=== PATIENT | male | born 1935 | race African-American/Black ===

== ENCOUNTER 2016-12-31 04:28 | Emergency (ER) | payer OTHER ==
[~2016-12-31] VITALS: Ht 182.9 cm; Wt 54.0 kg
[2016-12-31 05:34] LABS: HEMATOCRIT. 25.3 % (42.0-52.0); HEMOGLOBIN. 8.1 g/dL (14.0-18.0); MEAN CORPUSCULAR HEMOGLOBIN 24.2 pg (28.0-32.0); MEAN CORPUSCULAR VOLUME 75.9 fL (80.0-94.0); MEAN PLATELET VOLUME 8.6 fl (7.4-10.4); PLATELET 217 x1000/uL (130-400); RED BLOOD CELL COUNT 3.33 mill/uL (4.7-6.1); RED CELL DISTRIBUTION WIDTH 17.6 % (11.6-14.6)
[2016-12-31] MEDS ORDERED: DEXTROSE 10% WATER 500 ML IV ONE (05:45)
[2016-12-31 05:51] LABS: CARBON DIOXIDE 34 mEq/L (21-32); CHLORIDE 99 mEq/L (98-107)
[2016-12-31] MEDS ORDERED: POTASSIUM CHLORIDE 20MEQ TABLET SR PO ONE (06:00)
[2016-12-31 06:46] LABS: PLATELET ESTIMATE NORMAL
[2016-12-31 08:28] VITALS: BP 145/82
== END 2016-12-31 08:40 | disposition short-term general hospital (02) ==
LOC: ER 04:34
DX: E11.649 Type 2 diabetes mellitus with hypoglycemia without coma (principal); I10 Essential (primary) hypertension; Z79.4 Long term (current) use of insulin; Z85.07 Personal history of malignant neoplasm of pancreas
CPT/HCPCS: 36415; 80053; 82962; 85025; 93005; 96360; 96361; 99285

== ENCOUNTER 2017-01-02 04:07 | Inpatient (IN) | payer OTHER ==
[2017-01-02] VITALS (8 sets, daily range): BP systolic 108–156; BP diastolic 65–90
[~2017-01-02] VITALS: Ht 172.7 cm; Wt 55.8 kg
[2017-01-02] MEDS ORDERED: DEXTROSE 50% WATER 50ML SYRINGE IV ONE ×4 (04:15→04:30)
[2017-01-02] MEDS ORDERED: DEXTROSE 50% WATER 50ML SYRINGE IV STA (04:17)
[2017-01-02] MEDS ORDERED: DEXTROSE 10% WATER 500 ML IV ONE (04:30)
[2017-01-02] MEDS ORDERED: SODIUM CHLORIDE 0.9% 1000ML BAG (SEPSIS BOLUS) IV ONE (04:30)
[2017-01-02] MEDS ORDERED: PIPERACILLIN/TAZ 3.375G PREMIX 50 ML IV ONE (04:30)
[2017-01-02] MEDS ORDERED: VANCOMYCIN 1 G PREMIX 200 ML IV ONE (04:30)
[2017-01-02 05:05] LABS: INR 1.1; PROTHROMBIN TIME 11.1 sec
[2017-01-02 05:07] LABS: HEMATOCRIT. 22.5 % (42.0-52.0); HEMOGLOBIN. 7.3 g/dL (14.0-18.0); MEAN CORPUSCULAR HEMOGLOBIN 24.3 pg (28.0-32.0); MEAN CORPUSCULAR VOLUME 74.4 fL (80.0-94.0); MEAN PLATELET VOLUME 8.5 fl (7.4-10.4); PLATELET 222 x1000/uL (130-400); RED BLOOD CELL COUNT 3.02 mill/uL (4.7-6.1)
[2017-01-02 05:20] LABS: CARBON DIOXIDE 31 mEq/L (21-32); CHLORIDE 98 mEq/L (98-107)
[2017-01-02 05:30] LABS: BG BASE EXCESS 11.9 mmol/L (-2.0-2.0); BG CARBOXYHEMOGLOBIN 0.7 % (0.5-1.5); BG DEOXYHEMOGLOBIN 5.4 % (0.0-5.0); BG FRACTION INSPIRED OXYGEN 21; BG HCO3 ACT 36.3 mmol/L (22.0-26.0); BG METHEMOGLOBIN 0.3 % (0.0-1.5); BG OXYGEN SATURATION 94.5 % (92.0-98.5); BG OXYHEMOGLOBIN 93.6 % (94.0-97.0); BG PCO2 47.7 mmHg (35.0-45.0); BG PH 7.499 (7.350-7.450); BG PO2 72.6 mmHg (75.0-100.0); BG SAMPLE SITE RIGHT BRACHIAL; BG TOTAL HEMOGLOBIN 8.2 g/dL (12.0-18.0); BG VENT MODE ROOM AIR
[2017-01-02] MEDS ORDERED: POTASSIUM CHLORIDE 20MEQ TABLET SR PO ONE (05:45)
[2017-01-02] MEDS ORDERED: ASPIRIN 325MG EC TABLET PO ONE (06:00)
[2017-01-02 06:15] LABS: CLARITY URINE CLEAR (CLEAR); COLOR URINE YELLOW (YELLOW); GLUCOSE URINE 2+ (NEGATIVE); KETONES URINE NEGATIVE (NEGATIVE); LEUKOCYTE ESTERASE URINE NEGATIVE (NEGATIVE); NITRITE URINE NEGATIVE (NEGATIVE); OCCULT BLOOD URINE NEGATIVE (NEGATIVE); PH URINE 6.5 (4.5-8.0); PROTEIN URINE NEGATIVE (NEGATIVE); SPECIFIC GRAVITY URINE 1.015 (1.005-1.030)
[2017-01-02 06:30] LABS: PLATELET ESTIMATE NORMAL
[2017-01-02] MEDS ORDERED: MORP15TA67 PO (09:16)
[2017-01-02] MEDS ORDERED: METF10002 PO (09:22)
[2017-01-02] MEDS ORDERED: OMEP20CA10 PO (09:22)
[2017-01-02] MEDS ORDERED: AMLO2.5T45 PO (09:22)
[2017-01-02] MEDS ORDERED: LOSA100T14 PO (09:22)
[2017-01-02] MEDS ORDERED: HYDR25TA PO (09:22)
[2017-01-02] MEDS ORDERED: PANCREALIPASE (09:22)
[2017-01-02] MEDS ORDERED: GLIP10TA10 PO (09:22)
[2017-01-02] MEDS ORDERED: SYSOS EACHEYE (09:24)
[2017-01-02] MEDS ORDERED: IPRATROPIUM/ALBUTEROL 0.5-3(2.5)MG/3ML NEB INH PRN (10:15)
[2017-01-02] MEDS ORDERED: ONDANSETRON HCL 4MG/2ML VIAL IV PRN (10:15)
[2017-01-02] MEDS ORDERED: HYDROCODONE/ACETAMINOPHEN 5/325MG TABLET PO PRN (10:15)
[2017-01-02] MEDS ORDERED: ACETAMINOPHEN 325MG TABLET PO PRN (10:15)
[2017-01-02] MEDS ORDERED: DEXTROSE 50% WATER 50ML SYRINGE IV PRN ×2 (10:15→13:30)
[2017-01-02] MEDS ORDERED: DOCUSATE SODIUM 100MG CAPSULE PO PRN (10:15)
[2017-01-02] MEDS: LOSARTAN POTASSIUM 100 MG TABLET PO SCH (11:49)
[2017-01-02] MEDS: OMEPRAZOLE 20MG CAPSULE EXTENDED RELEASE PO SCH ×2 (11:49→21:05)
[2017-01-02] MEDS: INSULIN LISPRO 100 UNITS/ML SUBCUT SCH ×3 (12:08→21:06)
[2017-01-02] MEDS ORDERED: BLOOD SUGAR DIAGNOSTIC STRIP TEST SCH ×2 (12:30→17:30)
[2017-01-02 12:40] LABS: HEMATOCRIT 22.7 % (42.0-52.0); HEMOGLOBIN 7.4 g/dL (14.0-18.0); MEAN CORPUSCULAR HEMOGLOBIN 24.1 pg (28.0-32.0); MEAN CORPUSCULAR VOLUME 74.2 fL (80.0-94.0); PLATELET 191 x1000/uL (130-400); RED BLOOD CELL COUNT 3.06 mill/uL (4.7-6.1); RED CELL DISTRIBUTION WIDTH 17.8 % (11.6-14.6)
[2017-01-02 13:06] LABS: CARBON DIOXIDE 27 mEq/L (21-32); CHLORIDE 96 mEq/L (98-107); TOTAL IRON BINDING CAPACITY 126 ug/dL (250-450); TROPONIN I 0.16 ng/mL (0.00-0.04)
[2017-01-02] MEDS: PROPYLENE GLYCOL/PEG 400 15 ML DROPS BOTHEYE SCH ×2 (15:05→21:07)
[2017-01-02] MEDS: BLOOD SUGAR DIAGNOSTIC STRIP TEST SCH ×2 (17:31→21:00)
[2017-01-02] MEDS: FERROUS SULFATE 300MG/5ML UDC PO SCH (17:45)
[2017-01-02] MEDS ORDERED: INSULIN LISPRO 100 UNITS/ML SUBCUT SCH (18:00)
[2017-01-03] VITALS (12 sets, daily range): BP systolic 112–149; BP diastolic 56–105
[2017-01-03] MEDS: PIPERACILLIN/TAZ 3.375G PREMIX 50 ML IV SCH ×4 (00:48→17:31)
[2017-01-03] MEDS: OMEPRAZOLE 20MG CAPSULE EXTENDED RELEASE PO SCH ×2 (05:37→20:38)
[2017-01-03 07:56] LABS: CARBON DIOXIDE 26 mEq/L (21-32); CHLORIDE 98 mEq/L (98-107)
[2017-01-03] MEDS: INSULIN LISPRO 100 UNITS/ML SUBCUT SCH ×4 (08:00→20:41)
[2017-01-03] MEDS: BLOOD SUGAR DIAGNOSTIC STRIP TEST SCH ×4 (08:42→20:42)
[2017-01-03] MEDS: FERROUS SULFATE 300MG/5ML UDC PO SCH ×3 (08:43→17:31)
[2017-01-03] MEDS: LOSARTAN POTASSIUM 100 MG TABLET PO SCH (08:43)
[2017-01-03] MEDS: PROPYLENE GLYCOL/PEG 400 15 ML DROPS BOTHEYE SCH ×2 (08:43→20:38)
[2017-01-03] MEDS ORDERED: PANCREALIPASE PO SCH (09:00)
[2017-01-03 09:47] LABS: BASOPHILS % 0.8 % (0.0-2.0); EOSINOPHILS % 0.6 % (0.0-5.0); HEMATOCRIT. 27.7 % (42.0-52.0); LYMPHOCYTES % 14.7 % (20.0-50.0); MEAN CORPUSCULAR HEMOGLOBIN 23.9 pg (28.0-32.0); MEAN CORPUSCULAR VOLUME 75.5 fL (80.0-94.0); MEAN PLATELET VOLUME 8.7 fl (7.4-10.4); NEUTROPHILS % 79.9 % (40.0-76.0); PLATELET 272 x1000/uL (130-400); RED BLOOD CELL COUNT 3.67 mill/uL (4.7-6.1); RED CELL DISTRIBUTION WIDTH 17.9 % (11.6-14.6)
[2017-01-03 09:54] LABS: HEMOGLOBIN. 8.8 g/dL (14.0-18.0)
== END 2017-01-03 22:00 | disposition short-term general hospital (02) | DRG 637 ==
LOC: ER 04:07 → 5EST 05:49 → EDBEDREQSVC 05:55 → ENRESERV 07:10
PROVIDERS: ADMIT Family Medicine Adult Medicine; ATTEND Family Medicine Adult Medicine
DX: E11.649 Type 2 diabetes mellitus with hypoglycemia without coma (principal); E43 Unspecified severe protein-calorie malnutrition; C25.9 Malignant neoplasm of pancreas, unspecified; C77.9 Secondary and unspecified malignant neoplasm of lymph node, unspecified; E87.1 Hypo-osmolality and hyponatremia; Z68.1 Body mass index [BMI] 19.9 or less, adult; R65.10 Systemic inflammatory response syndrome (SIRS) of non-infectious origin without acute organ dysfunction; R78.81 Bacteremia; D50.9 Iron deficiency anemia, unspecified; I11.0 Hypertensive heart disease with heart failure; I50.9 Heart failure, unspecified; B19.20 Unspecified viral hepatitis C without hepatic coma; E87.6 Hypokalemia; L89.159 Pressure ulcer of sacral region, unspecified stage; Z79.899 Other long term (current) drug therapy; Z79.4 Long term (current) use of insulin; Z87.441 Personal history of nephrotic syndrome; Y92.89 Other specified places as the place of occurrence of the external cause; Z86.718 Personal history of other venous thrombosis and embolism; T50.995A Adverse effect of other drugs, medicaments and biological substances, initial encounter; Z86.711 Personal history of pulmonary embolism; I82.402 Acute embolism and thrombosis of unspecified deep veins of left lower extremity; I67.82 Cerebral ischemia; Z66 Do not resuscitate
CPT/HCPCS: 36415; 36600; 70450; 71010; 78582; 80048; 80053; 81001; 82375; 82805; 82962; 83036; 83540; 83550; 83605; 83880; 84484; 85025; 85027; 85610; 86850; 86870; 86900; 86920; 87040; 87077; 87086; 87186; 92610; 93005; 93970; 96361; 96365; 96367; 96375; 99291; A9558; J1815; J2543; J3370; J7030; J7050